=== PATIENT | male | born 1950 | race Caucasian/White ===

== ENCOUNTER 2023-05-23 21:37 | Outpatient (CLI) | payer MEDICARE, SELFPAY ==
[2023-05-23 13:08] LABS: Abs Immature Grans 0.06 10^3/uL (0.0-0.06); Absolute Basophil Count 0.04 10^3/uL (0.0-0.2); Absolute Eosinophil Count 0.06 10^3/uL (0.0-0.7); Absolute Lymphocyte Count 1.76 10^3/uL (1.2-3.4); Absolute Monocyte Count 0.93 10^3/uL (0.1-0.8); Absolute Neutrophil Count 1.98 10^3/uL (1.2-6.7); Basophils % 0.8; Eosinophils % 1.2; HCT 36.6 % (40.0-50.0); HGB 11.9 g/dL (13.5-17.5); Immature Grans % 1.2; Lymphocytes % 36.4; MCH 30.1 pg (27.0-33.0); MCHC 32.5 % (32.0-36.0); MCV 92 fL (80-95); MPV 8.4 fL (8.0-11.0); Monocytes % 19.3; Neutrophils % 41.1; Platelet Count 204 10^3/uL (130-400); RBC 3.96 10^6/uL (4.36-5.78); RDW 13.7 % (11.8-14.1); RDW-SD 46.2 fL; WBC 4.83 10^3/uL (4.4-10.8)
[2023-05-23 14:24] LABS: ALT 28 U/L (16-63); AST 16 U/L (15-37); Albumin 3.4 g/dL (3.4-5.0); Alkaline Phosphatase 70 U/L (46-116); Anion Gap 6.1 mmol/L (3-11); BUN 28 mg/dL (7-18); Bilirubin, Total 0.3 mg/dL (0.2-1.0); CO2 28.9 mmol/L (21.0-32.0); CREATININE 1.2 mg/dL (0.70-1.30); Calcium 9.2 mg/dL (8.5-10.1); Chloride 107 mmol/L (98-107); Estimated GFR 64.25 (mL/min/1.73m2); Folate 11.4 ng/mL (8.6-20.0); Glucose 59 mg/dL (74-106); Potassium 4.4 mmol/L (3.5-5.1); Sodium 142 mmol/L (136-145); Total Protein 6.9 g/dL (6.4-8.2); Vitamin B12 662 pg/mL (193-986)
[2023-05-23 14:39] LABS: Iron 53 ug/dL (65-175); Total Iron Binding Capacity 270 ug/dL (250-450); Transferrin Sat 20 % (20-55)
== END 2023-05-23 21:38 | disposition home or self-care (01) ==
LOC: LBO 21:43
PROVIDERS: Visit Provider Internal Medicine
DX: C71.9 Malignant neoplasm of brain, unspecified (principal); Z79.899 Other long term (current) drug therapy
CPT/HCPCS: 36415; 80053; 82607; 82746; 83540; 83550; 85025

== ENCOUNTER 2023-05-30 15:28 | Outpatient (CLI) | payer MEDICARE, SELFPAY ==
[2023-05-30 13:05] LABS: Abs Immature Grans 0.07 10^3/uL (0.0-0.06); Absolute Basophil Count 0.05 10^3/uL (0.0-0.2); Absolute Eosinophil Count 0.12 10^3/uL (0.0-0.7); Absolute Lymphocyte Count 1.98 10^3/uL (1.2-3.4); Absolute Monocyte Count 0.96 10^3/uL (0.1-0.8); Basophils % 0.8; HCT 36.8 % (40.0-50.0); HGB 11.8 g/dL (13.5-17.5); Immature Grans % 1.2; Lymphocytes % 32.6; MCH 30.2 pg (27.0-33.0); MCHC 32.1 % (32.0-36.0); MCV 94 fL (80-95); MPV 8.7 fL (8.0-11.0); Monocytes % 15.8; Neutrophils % 47.6; Platelet Count 249 10^3/uL (130-400); RBC 3.91 10^6/uL (4.36-5.78); RDW 14.3 % (11.8-14.1); RDW-SD 48.5 fL; WBC 6.08 10^3/uL (4.4-10.8)
[2023-05-30 14:03] LABS: Iron 65 ug/dL (65-175); Total Iron Binding Capacity 296 ug/dL (250-450); Transferrin Sat 22 % (20-55)
[2023-05-30 14:04] LABS: ALT 30 U/L (16-63); AST 14 U/L (15-37); Albumin 3.6 g/dL (3.4-5.0); Alkaline Phosphatase 70 U/L (46-116); Anion Gap 7.9 mmol/L (3-11); BUN 32 mg/dL (7-18); Bilirubin, Total 0.3 mg/dL (0.2-1.0); CO2 27.1 mmol/L (21.0-32.0); CREATININE 1.6 mg/dL (0.70-1.30); Calcium 9.6 mg/dL (8.5-10.1); Chloride 108 mmol/L (98-107); Estimated GFR 45.21 (mL/min/1.73m2); Folate 11.5 ng/mL (8.6-20.0); Glucose 143 mg/dL (74-106); Potassium 4.5 mmol/L (3.5-5.1); Sodium 143 mmol/L (136-145); Total Protein 7.1 g/dL (6.4-8.2); Vitamin B12 701 pg/mL (193-986)
== END 2023-05-30 15:29 | disposition home or self-care (01) ==
LOC: LBO 15:28
PROVIDERS: Visit Provider Nurse Practitioner Family
DX: C71.9 Malignant neoplasm of brain, unspecified (principal)
CPT/HCPCS: 36415; 80053; 82607; 82746; 83540; 83550; 85025

== ENCOUNTER 2023-06-06 13:52 | Outpatient (CLI) | payer MEDICARE, SELFPAY ==
[2023-06-06 12:54] LABS: Abs Immature Grans 0.04 10^3/uL (0.0-0.06); Absolute Basophil Count 0.05 10^3/uL (0.0-0.2); Absolute Eosinophil Count 0.12 10^3/uL (0.0-0.7); Absolute Lymphocyte Count 1.62 10^3/uL (1.2-3.4); Absolute Monocyte Count 0.89 10^3/uL (0.1-0.8); Basophils % 0.8; Eosinophils % 1.9; HCT 38.1 % (40.0-50.0); HGB 12.6 g/dL (13.5-17.5); Immature Grans % 0.6; Lymphocytes % 25.2; MCH 30.4 pg (27.0-33.0); MCHC 33.1 % (32.0-36.0); MCV 92 fL (80-95); MPV 8.8 fL (8.0-11.0); Monocytes % 13.9; Neutrophils % 57.6; Platelet Count 276 10^3/uL (130-400); RBC 4.14 10^6/uL (4.36-5.78); RDW 14.3 % (11.8-14.1); RDW-SD 48.5 fL; WBC 6.42 10^3/uL (4.4-10.8)
[2023-06-06 13:24] LABS: ALT 25 U/L (16-63); AST 12 U/L (15-37); Albumin 3.8 g/dL (3.4-5.0); Alkaline Phosphatase 70 U/L (46-116); Anion Gap 9.4 mmol/L (3-11); BUN 28 mg/dL (7-18); Bilirubin, Total 0.4 mg/dL (0.2-1.0); CO2 26.6 mmol/L (21.0-32.0); CREATININE 1.3 mg/dL (0.70-1.30); Calcium 9.4 mg/dL (8.5-10.1); Chloride 106 mmol/L (98-107); Estimated GFR 58.01 (mL/min/1.73m2); Glucose 112 mg/dL (74-106); Potassium 4.5 mmol/L (3.5-5.1); Sodium 142 mmol/L (136-145); Total Protein 7.4 g/dL (6.4-8.2)
[2023-06-06 14:18] LABS: Folate 12.3 ng/mL (8.6-20.0); Vitamin B12 763 pg/mL (193-986)
[2023-06-06 16:02] LABS: Iron 60 ug/dL (65-175); Total Iron Binding Capacity 321 ug/dL (250-450); Transferrin Sat 19 % (20-55)
== END 2023-06-06 13:53 | disposition home or self-care (01) ==
LOC: LBO 13:52
PROVIDERS: Visit Provider Internal Medicine
DX: C71.9 Malignant neoplasm of brain, unspecified (principal); Z79.899 Other long term (current) drug therapy
CPT/HCPCS: 36415; 80053; 82607; 82746; 83540; 83550; 85025

== ENCOUNTER → 2023-08-28 02:28 | Outpatient (CLI) | payer MEDICARE, BC, SELFPAY ==
--- NOTE | 2023-08-28 | DI.MRI_ITS ---
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 Both noninfused and contrast i nfused sequences were performed. IV Contrast injected was 20 cc Dotarem. COMPARISON: MR MRI BRAIN WWO W PERFUSION from 07/14/2023 FINDINGS: CEREBRAL PARENCHYMA: The peripherally enhancing lesion in the posterior right thalamus and medial rig ht temporal lobe is again noted and its medial aspect is again noted to extend into the right-side of the posterior aspect of the corpus callosum. This involvement in the right-side of the carpal us ca llosum again exhibits some restricted diffusion but less intense than previous. Mild restricted diff usion also noted at the lateral border of enhancement, unchanged. On the present study the lesion me asurement appears similar to previous, measuring 3.8 cm wide x 1.8 cm AP x 2.0 cm cephalocaudal the a mount of peripheral enhancement of the lesion appears relatively stable. None the amount of surround ing white matter signal abnormality is also stable. Ventricular size is unchanged. There are no new enhancing lesions elsewhere in the brain. PITUITARY GLAND: No mass nor parasellar abnormality. No obvious abnormality in the cavernous sinuses. FLOW VOIDS: The expected flow void are noted. No evidence of obvious aneurysm nor obvious vascular ma lformation. PARANASAL SINUSES: The visualized paranasal sinuses appear unremarkable. ORBITS: No obvious abnormal findings. IMPRESSION: 1. 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 2. No new lesions identified in the brain. DATA REPOSITORY:
[2023-08-28] MEDS: Normal Saline Flush 10 ML SYR IVP (09:39)
[2023-08-28] MEDS: Gadoterate meglumine 20 ML SYRINGE IVP (09:40)
== END ==
PROVIDERS: Visit Provider Internal Medicine
DX: C71.9 Malignant neoplasm of brain, unspecified (principal)
CPT/HCPCS: 70553

== ENCOUNTER → 2023-09-27 01:53 | Outpatient (CLI) | payer MEDICARE, BC, SELFPAY ==
--- NOTE | 2023-09-27 | DI.MRI_ITS ---
Exam(s) MR BRAIN WO/W EXAM: MR BRAIN WO/W CLINICAL HISTORY: F/U GLIOBLASTOMA.C71.9,ASSESS TREATMENT RESPONSE. TECHNIQUE: Multiplanar multisequence MRI of the brain was performed. CONTRAST MATERIAL: IV Contrast: 20 ML of Dotarem contrast administered. COMPARISON: MR MRI BRAIN WWO W PERFUSION from 07/14/2023 MR MR BRAIN WO/W from 08/28/2023 FINDINGS: VENTRICLES AND EXTRA AXIAL SPACES: Normal in size and morphology for the patient's age. HEMORRHAGE: None. CEREBRAL PARENCHYMA: No change in size or appearance of the left a enhancing mass in the left thalamu s/posteromedial right temporal lobe. Stable in amount of white matter edema extending into the parie med region as well as anteromedial temporal lobe. No new masses. MIDLINE SHIFT: None. BRAINSTEM/CEREBELLUM: Normal. CALVARIUM: Normal. VISUALIZED PARANASAL SINUSES/MASTOIDS: Clear. Orbits: Unremarkable. Pituitary: Normal. Vasculature: Normal flow voids. IMPRESSION: Stable size and appearance of peripherally enhancing right thalamic mass. DATA REPOSITORY:
[2023-09-27] MEDS: Normal Saline Flush 10 ML SYR IVP (11:28)
[2023-09-27] MEDS: Gadoterate meglumine 20 ML SYRINGE IVP (11:29)
== END ==
PROVIDERS: Visit Provider Internal Medicine
DX: C71.9 Malignant neoplasm of brain, unspecified (principal)
CPT/HCPCS: 70553

== ENCOUNTER → 2023-11-20 02:28 | Outpatient (CLI) | payer MEDICARE, BC, SELFPAY ==
--- NOTE | 2023-11-20 | DI.MRI_ITS ---
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 Both noninfused and contrast i nfused sequences were performed. IV Contrast injected was cc Dotarem. MR MRI BRAIN WWO W PERFUSION from 07/14/2023 MR MR BRAIN WO/W from 08/28/2023 MR MR BRAIN WO/W from 09/27/2023 FINDINGS: CEREBRAL PARENCHYMA: The previously described predominately right thalamic ring-enhancing lesion is again noted. It has n ot increased in size and indeed the rim enhancement is significantly uniformly thinner than on the pr evious studies. The amount of white matter edema is slightly decreased, specifically in the ipsilate ral basal ganglia and external capsule. The biopsy path appears stable. However, on diffusion imagi ng there is a small 7 x 5 mm focus of restricted diffusion evident just medial to the lesion in the r ight-side of the splenium of the corpus callosum, slightly more prominent than previous. The adjacen t thin enhancing rim chest medial to this finding does not appear discontinuous. There are no new ri ng-enhancing lesions in the brain nor abnormal meningeal enhancement. Ventricular size is unchanged and there is no shift. On SWI the 2 tracts of susceptibility leading towards the lesion appear unchanged. There is also ano ther focus of sub septae ability artifact in the right middle cranial fossa within the medial tempora l lobe, also unchanged from prior studies. There is no abnormal signal at this level on the conventi onal sequences nor abnormal enhancement at this level. PITUITARY GLAND: No mass nor parasellar abnormality. No obvious abnormality in the cavernous sinuses. FLOW VOIDS: The expected flow void are noted. No evidence of obvious aneurysm nor obvious vascular ma lformation. PARANASAL SINUSES: The visualized paranasal sinuses appear unremarkable. ORBITS: No obvious abnormal findings. IMPRESSION: 1. The lesion in the right thalamus exhibits unchanged size but significant decreased thickness of th e enhancing rim which is now uniformly thin and measuring only 1-2 millimeters. 2. Increased focus of restricted diffusion in the adjacent right side of the splenium of the corpus c allosum, this measuring 7 x 5 mm. This does not exhibit enhancement.. 3. Stable three findings on susceptibility weighted imaging as described above. DATA REPOSITORY:
[2023-11-20] MEDS: Normal Saline Flush 10 ML SYR IVP (10:40)
== END ==
PROVIDERS: Visit Provider Internal Medicine
DX: C71.9 Malignant neoplasm of brain, unspecified (principal); Z51.11 Encounter for antineoplastic chemotherapy
CPT/HCPCS: 70553

== ENCOUNTER → 2024-01-22 02:57 | Outpatient (CLI) | payer MEDICARE, BC, SELFPAY ==
--- NOTE | 2024-01-22 | DI.MRI_ITS ---
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 Both noninfused and contrast i nfused sequences were performed. IV Contrast injected was cc Dotarem. COMPARISON: MR MR BRAIN WO/W from 11/20/2023 FINDINGS: CEREBRAL PARENCHYMA: The thin ring-enhancing lesion in the posterior aspect of the right thalamus exh ibits minimal if any significant change from 11/20/2023. The rim enhancement is actually slightly ev en thinner than on the previous study and the amount of surrounding an ipsilateral white matter signa l abnormality on FLAIR imaging appears unchanged imaged.. There is no new mass effect nor shift and ventricular size is unchanged. There are no new ring-enhancing lesions in the brain. There is no ab normal meningeal enhancement. DWI: The area of restricted diffusion in the right side of the splenium of the corpus callosum appear s stable SWI: No change from previous PITUITARY GLAND: No mass nor parasellar abnormality. No obvious abnormality in the cavernous sinuses. FLOW VOIDS: The expected flow void are noted. No evidence of obvious aneurysm nor obvious vascular ma lformation. PARANASAL SINUSES: The visualized paranasal sinuses appear unremarkable. ORBITS: No obvious abnormal findings. IMPRESSION: 1. Stable appearance when compared to the MRI scan of 11/20/2023. The lesion in the right thalamus i s unchanged in size and there is slight further decrease in thickness of the enhancing rim which now measures maximum 1 mm. Area of restricted diffusion in the right-side of the splenium of the corpus callosum appears unchanged. DATA REPOSITORY:
[2024-01-22 14:43] LABS: Abs Immature Grans 0.02 10^3/uL (0.0-0.06); Absolute Basophil Count 0.04 10^3/uL (0.0-0.2); Absolute Eosinophil Count 0.13 10^3/uL (0.0-0.7); Absolute Neutrophil Count 4.43 10^3/uL (1.2-6.7); Basophils % 0.6; Eosinophils % 2.1; HCT 38.9 % (40.0-50.0); HGB 12.5 g/dL (13.5-17.5); Immature Grans % 0.3; Lymphocytes % 17.4; MCH 30.6 pg (27.0-33.0); MCHC 32.1 % (32.0-36.0); MCV 95 fL (80-95); MPV 9.2 fL (8.0-11.0); Monocytes % 9.5; Neutrophils % 70.1; Platelet Count 185 10^3/uL (130-400); RBC 4.08 10^6/uL (4.36-5.78); RDW 12.9 % (11.8-14.1); RDW-SD 45.7 fL; WBC 6.32 10^3/uL (4.4-10.8)
[2024-01-22 15:00] LABS: ALT 21 U/L (16-63); AST 14 U/L (15-37); Albumin 3.8 g/dL (3.4-5.0); Alkaline Phosphatase 69 U/L (46-116); BUN 24 mg/dL (7-18); Bilirubin, Total 0.3 mg/dL (0.2-1.0); CREATININE 1.5 mg/dL (0.70-1.30); Calcium 9.2 mg/dL (8.5-10.1); Chloride 106 mmol/L (98-107); Estimated GFR 48.85 (mL/min/1.73m2); Glucose 160 mg/dL (74-106); Potassium 4.6 mmol/L (3.5-5.1); Sodium 144 mmol/L (136-145); Total Protein 7.3 g/dL (6.4-8.2)
[2024-01-22] MEDS: Gadoterate meglumine 20 ML SYRINGE IVP (15:08)
[2024-01-22] MEDS: Normal Saline Flush 10 ML SYR IJ (15:09)
== END ==
PROVIDERS: Visit Provider Internal Medicine
DX: C71.9 Malignant neoplasm of brain, unspecified (principal)
CPT/HCPCS: 70553; 80053; 85025